=== PATIENT | female | born 2000 | race Caucasian/White ===

== ENCOUNTER 2025-03-17 13:43 | Inpatient (IN) ==
[2025-03-17] MEDS ORDERED: FAMOTIDINE 20 MG TABLET PO PRN (16:15)
[2025-03-17] MEDS ORDERED: SODIUM CHLORIDE FLUSH 0.9% 10 ML SYRINGE IVP PRN (16:16)
[2025-03-17] MEDS ORDERED: LABETALOL 20 MG/4 ML SYRINGE IVP PRN ×3 (16:16)
[2025-03-17] MEDS ORDERED: METOCLOPRAMIDE 10 MG TABLET PO PRN (16:16)
[2025-03-17] MEDS ORDERED: METHYLERGONOVINE 0.2 MG/ML VIAL IM PRN (16:16)
[2025-03-17] MEDS ORDERED: OXYTOCIN 10 UNIT/ML VIAL IM PRN (16:16)
[2025-03-17] MEDS ORDERED: hydrALAZINE INJ 20 MG/ML VIAL IVP PRN (16:16)
[2025-03-17] MEDS ORDERED: CARBOPROST TROMETHAMINE 250 MCG/ML VIAL IM PRN (16:16)
[2025-03-17] MEDS ORDERED: TRANEXAMIC ACID IN NACL 1,000 MG/100 ML BAG IV PRN (16:16)
[2025-03-17] MEDS ORDERED: CALCIUM CARBONATE CHEW 500 MG TABLET PO PRN (16:16)
[2025-03-17] MEDS ORDERED: TERBUTALINE 1 MG/ML VIAL SUBQ PRN (16:16)
--- NOTE | 2025-03-17 16:20 | HISTORY & PHYSICAL EXAMINATION ---
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 Started age 9. Usually manages Tylenol ibuprofen -Metoclopramide sent. -Referral to neurology sent, pending insurance hiccup with . Still working this out. Obestiy -EFW ordered for 32 weeks. Moni works at a [employer] with very supportive bosses. Pre- Weight: 195 lb BMI: 32.4 Blood type: A+ Antibody: Neg CBC: PLT HCT 37.2 HGB 12.4 RUB: immune VZV: Immune HBsAg: Negative HepC: NR RPR/AB-EIA: NR HIV: NR PAP: 09/12/2024 WNL GC/CT: 09/12/2024 Negative HSV: denies Genetic testing: MaterniT negative AFP- Negative Covid: declined Flu: declined FAS: Placenta:anterior w/o previa Cord: 3VC HATTIE: wnl EFW: 457.7g, 24.3% 50gm OGCT:130 TDAP:7/10 Breast Pump:gave info 3rd trimester CBC:10.9/334/213 RPR: NR GBS: neg Delivery plan: Contraception: OCPS Last US: FINDINGS: General: A single living intrauterine gestation is present. Presentation: Vertex Placenta: Placental position is anterior, without previa. Amniotic fluid index: 15.2 cm, within normal limits for gestational age. Largest pocket 6 cm. heart rate: 140 beats per minute. Maternal cervical canal: Not imaged biometrics: Biparietal diameter: 8.0 cm, 32 weeks 2 days. 25th percentile. Head circumference: 31.4 cm, 35 weeks 1 day. 74th percentile. Abdominal circumference: 28.6 cm, 32 weeks 4 days. 43rd percentile. Femur length: 6.1 cm, 31 weeks 5 days. 13th percentile. Estimated gestational age from initial scan: 32 weeks 6 days Composite gestational age from present scan: 33 weeks 0 days Estimated weight and percentile: 2,004 grams. 32nd percentile. Measurement variability in biometric dating: +/- 10 days from 12-20 weeks gestation, +/- 2 weeks from 20-30 weeks gestation, +/- 3 weeks at 30 weeks gestation or more. IMPRESSION: 1. [place] living intrauterine at 33 weeks 0 days based on today's ultrasound. This is concordant with prior dating. Fetus is in the 32nd percentile for weight. 2. Normal placenta and amniotic fluid. Reviewed by: Mario Francois MD on 01/23/2025 HPI Current : Vital Signs Temperature 36.7 C 03/17/25 14:03 Pulse Rate 82 03/17/25 14:03 Respiratory Rate 16 03/17/25 14:03 Blood Pressure 129/80 03/17/25 14:03 Meds/Allgy Home Medications Ambulatory Orders Medication Instructions Recorded Confirmed acetaminophen 325 mg tablet 650 mg PO Q6H PRN 08/30/24 03/14/25 (Tylenol) vits no.126-ferrous fum tab PO QDAY 08/30/24 03/14/25 28 mg iron-folic acid 800 mcg tablet (Classic ) metoclopramide HCl 5 mg tablet 5 mg PO .q6hour Migrain es #30 tabs 09/12/24 03/14/25 famotidine 20 mg tablet 20 mg PO BID PRN heartburn # 60 tabs 11/20/24 03/14/25 ferrous sulfate 325 mg (65 mg 325 mg PO Q OTHER DAY #9 0 tabs 12/06/24 03/14/25 iron) tablet (FeroSul) Allergies Allergies Allergy/AdvReac Type Severity Reaction Status Date / Time adalimumab (From Humira) Allergy Nausea Verified 03/14/25 09:01 etanercept (From Enbrel) Allergy Nausea Verified 03/14/25 09:01 PFS Active Problems All Active Problems (Updated 03/17/25 @ 16:16 by Margarita Jaffe MD) Normal labor (Acute) Uterine size date discrepancy (Acute) Heartburn during (Acute) Ocular migraine (Acute) Supervision of normal (Acute) Anxiety and depression (Acute) Migraines (Acute) Arthritis (Acute) Seasonal allergies (Acute) Medical History Medical History Binge eating disorder Surgical History Surgical History H/O oral surgery [place] teeth extracted Family History Family History Sister Asthma Mother Seasonal allergies Paternal grandfather Diabetes Brother Alcoholism Other Skin cancer Social History Social History (Updated 02/14/25 @ 13:52 by Deneen Herrera MA) Smoking Status: Former smoker If you are a former smoker, when did you quit? 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 Review of Systems Constitutional Denies: Fever Cardiovascular Denies: chest pain or shortness of breath with exertion Respiratory Denies: Shortness of breath Gastrointestinal Reports: Nausea Neurological Reports: Dizziness (after contractions today); Denies: Headache Physical Abdominal Exam Vital Signs: Temp Pulse Resp BP 36.7 C 82 16 129/80 03/17/25 14:03 03/17/25 14:03 03/17/25 14:03 03/17/25 14:03 Contraction Frequency (min/apart): q3-4 Contraction Intensity: positive Moderate Uterine Resting Tone: positive Soft Monitoring Heart Rate Baseline: 150 Strip Review: positive Category I Presentation Presentation: positive Vertex Vaginal Exam Membranes: positive Membranes intact Dilation (in cm): 4 per RN Station: positive -2 Speculum Exam Speculum Exam Performed: positive No Plan for Labor Plan For Labor I expect patient to be DC'd or transferred within 96 hours.: Yes Plan for Labor: Admit for labor. Epidural she thinks. Anticipate . Conclusion/Plan Problem List (1) Normal labor: Lab Results Lab results reviewed: No Other Lab Results: labs pending.
[2025-03-17] MEDS: ONDANSETRON ODT 4 MG TABLET PO PRN (16:35)
[2025-03-17] MEDS: LACTATED RINGERS 1,000 ML IV PRN (16:36)
[2025-03-17 16:49] LABS: HCT - HEMATOCRIT 36.4 % (37.0-47.0); HGB - HEMOGLOBIN 12.1 g/dL (12.0-16.0); MEAN PLATELET VOLUME 11.9 fL (7.9-10.8); NRBC ABSOLUTE COUNT (AUTO) 0.00 x10^3/uL; NUCLEATED RED BLOOD CELLS AUTO 0.0 /100WBC; PLT - PLATELET COUNT 243 10^3/uL (130-450); RED CELL DISTRIBUTION WIDTH 14.7 % (12.0-15.0)
[2025-03-17] MEDS: fentaNYL 100 MCG/2 ML VIAL IVP PRN (17:11)
[2025-03-17] MEDS: LACTATED RINGERS 1,000 ML IV SCH (17:15)
[2025-03-17] MEDS ORDERED: ROPIVACAINE 0.2% 200 MG/100 ML BAG EP ONE (18:13)
[2025-03-17] MEDS ORDERED: ROPIVACAINE 0.2% 200 MG/100 ML BAG EP PRN (19:05)
[2025-03-17] MEDS ORDERED: ONDANSETRON 4 MG/2 ML VIAL IVP PRN ×2 (19:05→22:56)
[2025-03-17] MEDS ORDERED: NALOXONE 0.4 MG/ML VIAL IVP PRN ×2 (19:05→22:56)
[2025-03-17] MEDS ORDERED: NALBUPHINE 10 MG/ML AMP IVP PRN (19:05)
[2025-03-17] MEDS ORDERED: ePHEDrine 50 MG/ML VIAL IVP PRN (19:05)
[2025-03-17] MEDS ORDERED: METOCLOPRAMIDE 10 MG/2 ML VIAL IVP PRN (19:05)
--- NOTE | 2025-03-17 19:09 | ANESTHESIA PROCEDURE NOTE ---
Pre-Anesthesia VS, & Labs Diagnosis Surgical Diagnosis:: active labor Procedure Procedure: spontaneous labor Vitals Vital Signs: Temp Pulse Resp BP 36.5 C 82 16 129/80 03/17/25 17:23 03/17/25 17:23 03/17/25 17:23 03/17/25 17:23 NPO NPO: Other (clears from now on) Is Patient ?: Yes Lab Results Current Lab Results: Laboratory Tests 03/17/25 16:23: WBC 13.3 H, RBC 4.20, Hgb 12.1, Hct 36.4 L, MCV 86.7, MCH 28.8, MCHC 33.2, RDW 14.7, Plt Count 243, MPV 11.9 H, Neut # (Auto) 11.0 H, Lymph # (Auto) 1.3 L, Arthur # (Auto) 0.9, Eos # (Auto) 0.0, Baso # (Auto) 0.0, Absolute Nucleated RBC 0.00, Nucleated RBC % 0.0, Blood Type A POSITIVE, Antibody Screen NEGATIVE 03/17/25 16:23 Meds/Allgy Home Medications Ambulatory Orders Medication Instructions Recorded Confirmed acetaminophen 325 mg tablet 650 mg PO Q6H PRN 08/30/24 03/14/25 (Tylenol) vits no.126-ferrous fum tab PO QDAY 08/30/24 03/14/25 28 mg iron-folic acid 800 mcg tablet (Classic ) metoclopramide HCl 5 mg tablet 5 mg PO .q6hour Migrain es #30 tabs 09/12/24 03/14/25 famotidine 20 mg tablet 20 mg PO BID PRN heartburn # 60 tabs 11/20/24 03/14/25 ferrous sulfate 325 mg (65 mg 325 mg PO Q OTHER DAY #9 0 tabs 12/06/24 03/14/25 iron) tablet (FeroSul) Allergies Allergies Allergy/AdvReac Type Severity Reaction Status Date / Time adalimumab (From Humira) Allergy Nausea Verified 03/14/25 09:01 etanercept (From Enbrel) Allergy Nausea Verified 03/14/25 09:01 PFSH Active Problems All Active Problems (Updated 03/17/25 @ 16:16 by Margarita Jaffe MD) Normal labor (Acute) Uterine size date discrepancy (Acute) Heartburn during (Acute) Ocular migraine (Acute) Supervision of normal (Acute) Anxiety and depression (Acute) Migraines (Acute) Arthritis (Acute) Seasonal allergies (Acute) Medical History Medical History Binge eating disorder Surgical History Surgical History H/O oral surgery [place] teeth extracted Family History Family History Sister Asthma Mother Seasonal allergies Paternal grandfather Diabetes Brother Alcoholism Other Skin cancer Social History Social History (Updated 02/14/25 @ 13:52 by Deneen Herrera MA) Smoking Status: Former smoker If you are a former smoker, when did you quit? 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 Anesthesia Exam (Expanded) Exam General: Alert, Oriented x3, Cooperative and Moderate distress (during contractions) Dental: WNL Mouth Opening: Greater than 4 Fingerbreadths Neck Mobility: Normal Mallampati classification: II Thyromental Distance: greater than 6 cm Respiratory: Lungs clear Cardiovascular: Regular rate Exam Exam Vital Signs: Vital Signs x48h Temp Pulse Resp BP 03/17/25 17:23 36.5 C 82 16 129/80 03/17/25 14:03 36.7 C 82 16 129/80 Plan Problem List (1) Normal labor: Plan Anesthesia Type: Epidural Consent for Procedure(s) Verified and Reviewed: Yes Code Status: Attempt Resuscitation ASA Classification ASA classification: 2-Mild systemic disease Is this case an emergency?: No
--- NOTE | 2025-03-17 20:53 | PROVIDER PROGRESS NOTE ---
Progress Note Progress Note Progress Note: Patient comfortable now with her epidural. VSS. excited to meet her son. wants to do whatever we can to expidite things. Mom says AROM helped her go faster. cervix 100/-1. AROM with clear fluid. anticipate later this evening.
[2025-03-17] MEDS: OXYTOCIN/SODIUM CHLORIDE 500 ML IV PRN (22:45)
[2025-03-17] MEDS ORDERED: HYDROCORTISONE 1% CREAM 28 GM TUBE TOP PRN (22:56)
[2025-03-17] MEDS ORDERED: WITCH HAZEL/GLYCERIN 1 PAD TOP PRN (22:56)
[2025-03-17] MEDS ORDERED: ACETAMINOPHEN 500 MG TABLET PO PRN (22:56)
[2025-03-17] MEDS ORDERED: SIMETHICONE CHEW 80 MG TABLET PO PRN (22:56)
[2025-03-17] MEDS ORDERED: OXYTOCIN/SODIUM CHLORIDE 500 ML IV PRN (22:56)
--- NOTE | 2025-03-17 23:16 | DELIVERY NOTE ---
Delivery Note Labor Labor: positive Spontaneous Infant Delivery Method Infant Delivery Method: positive Spontaneous vaginal delivery Presentation Presentation: positive Vertex and ZEUS - right occiput anterior Nuchal Cord Nuchal Cord: positive None Amniotic Fluid Description Amniotic Fluid Description: positive Clear and Moderate meconium (with delivery) Episiotomy Type Episiotomy Type: positive None Laceration Laceration: positive 1st degree (repaired with 3-0 Vicryl Rapide with one figure of 8 stitch right at the vaginal opening.) Delivery Outcome Delivery Date: 03/17/25 Delivery Outcome: positive Livebirth [place]: positive Placed in direct skin contact with mother, Stimulated, Warmed and Lajas used [place] sex: positive Male Cord Cord: positive 3 vessels Placenta Placenta: positive Intact (very small) and Spontaneous Estimated Blood Loss Estimated Blood Loss (in cc): 100 Post Delivery Events Post Delivery Events: positive No post delivery events Delivery Comments (Free Text/Narrative) Delivery Comments (Free Text/Narrative): Patient presented in active labor. progressed to 4 cm. received her epidural. 1 hr or so later I checked and she was 7 cm. AROM was done and fluid was clear. 2 hrs later she was complete. We readied her for delivery. She pushed thru about 5 contractions and delivered her baby in OA position. Baby was put on her belly. Cord was relatively short. I clamped the cord after about 2 min and Sebastian cut the cord. Patient's mom and dad are here for support. Baby vigorous from time of . Apgars 9/9. Baby's name is Deacon. Pitocin is infused in the IV. Placenta delivered spontaneously after another 2 min. Small laceration repaired. She was amazing.
[2025-03-18] MEDS: IBUPROFEN 600 MG TABLET PO PRN (02:06)
[2025-03-18] MEDS: ACETAMINOPHEN 500 MG TABLET PO PRN (02:06)
[2025-03-18] MEDS: DOCUSATE SODIUM 100 MG CAPSULE PO PRN (08:22)
--- NOTE | 2025-03-18 15:40 | PROVIDER PROGRESS NOTE ---
Subjective Subjective Subjective: Subjective Patient reports she is doing well. Lochia appropriate. Denies heavy bleeding. Ambulating. Pelvic and abdominal pain well-controlled. Tolerating oral intake. Diet: Regular. Voiding without difficulty. Passing flatus. Denies BM. Patient is bonding with baby in room Breast feeding going well. Denies feeling lightheaded, dizzy or excessively fatigued. Objective General: Alert, oriented, no apparent distress. Cardiovascular: Regular rate. Regular rhythm. Lungs: No increased work of breathing. Abdomen: Uterus firm. Below umbilicus. No guarding or rebound. Extremities: No pain on palpation. No cords palpated. Distal pulses intact. Current Medications Current Medications Current Medications: Current Medications Generic Name Dose Route Start Last Admin Trade Name Freq PRN Reason Stop Dose Admin Acetaminophen 1,000 mg 03/17/25 16:16 03/18/25 11:22 Acetaminophen 500 Mg Tablet PO 1,000 mg Q8HR PRN Administration Mild Pain or Fever>38C(100.4F) Acetaminophen 1,000 mg 03/17/25 22:56 Acetaminophen 500 Mg Tablet PO Q8HR PRN Mild Pain or Fever>38C(100.4F) Calcium Carbonate/Glycine 1,000 mg 03/17/25 16:16 Calcium Carbonate Chew 500 Mg Tablet PO Q6HR PRN Heartburn Diphenhydramine HCl 25 mg 03/17/25 22:56 Diphenhydramine 25 Mg Capsule PO Q6HR PRN Allergy Symptoms Docusate Sodium 200 mg 03/17/25 16:16 03/18/25 08:22 Docusate Sodium 100 Mg Capsule PO 200 mg BID PRN Administration Constipation Famotidine 20 mg 03/17/25 16:15 Famotidine 20 Mg Tablet PO BID PRN Heartburn Hydralazine HCl 5 - 10 mg 03/17/25 16:16 Hydralazine Inj 20 Mg/Ml Vial IVP Q20M PRN SBP> or= 160 OR DBP> or= 110 Protocol Hydrocortisone 1 applic 03/17/25 22:56 Hydrocortisone 1% Cream 28 Gm Tube TOP QID PRN Hemorrhoids Ibuprofen 600 mg 03/17/25 22:56 03/18/25 08:22 Ibuprofen 600 Mg Tablet PO 600 mg Q6HR PRN Administration Moderate Pain (Level 4-6) Labetalol HCl 20 mg 03/17/25 16:16 Labetalol 20 Mg/4 Ml Syringe IVP .ONCE PRN SBP> or= 160 OR DBP> or= 110 Protocol Labetalol HCl 20 - 80 mg 03/17/25 16:16 Labetalol 20 Mg/4 Ml Syringe IVP Q10M PRN SBP> or= 160 OR DBP> or= 110 Protocol Labetalol HCl 20 - 40 mg 03/17/25 16:16 Labetalol 20 Mg/4 Ml Syringe IVP Q10M PRN SBP> or= 160 OR DBP> or= 110 Protocol Metoclopramide HCl 5 mg 03/17/25 16:16 Metoclopramide 10 Mg Tablet PO Q6HR PRN Nausea / Vomiting Nifedipine 10 - 20 mg 03/17/25 16:16 Nifedipine 10 Mg Capsule PO Q20M PRN SBP> or= 160 OR DBP> or= 110 Protocol Ondansetron HCl 4 mg 03/17/25 16:16 03/17/25 16:35 Ondansetron Odt 4 Mg Tablet PO 4 mg Q4HR PRN Administration Nausea / Vomiting Simethicone 80 mg 03/17/25 22:56 Simethicone Chew 80 Mg Tablet PO TID PRN Gas Sodium Chloride 10 ml 03/17/25 16:16 Sodium Chloride Flush 0.9% 10 Ml Syringe IVP PRN PRN NEEDED PER PROVIDER ORDERS Witch Yumiko/Glycerin 1 pad 03/17/25 22:56 Witch Yumiko/Glycerin 1 Pad TOP PRN PRN ITCHING Objective Vital Signs/Intake & Output Vital Signs: Vital Signs x48h Temp Pulse Resp BP Pulse Ox 03/18/25 13:24 36.8 C 83 17 139/86 H 98 03/18/25 09:24 98.2 C H 87 18 132/85 H 99 Intake & Output: Intake & Output 03/15/25 03/16/25 03/17/25 03/18/25 23:59 23:59 23:59 23:59 Intake Total 800 / 800 Output Total 500 / 500 600 / 600 Balance -500 / -500 200 / 200 Weight (kg) 214 lb 15.211 oz Lab Results 03/17/25 16:23 Other Labs: Lab Results x24hrs 03/17/25 Range/Units 16:23 WBC 13.3 H (4.8-10.8) x10^3/uL RBC 4.20 (4.20-5.40) 10^6/uL Hgb 12.1 (12.0-16.0) g/dL Hct 36.4 L (37.0-47.0) % MCV 86.7 (81.0-99.0) fL MCH 28.8 (27.0-31.0) pg MCHC 33.2 (32.0-36.0) g/dL RDW 14.7 (12.0-15.0) % Plt Count 243 (130-450) 10^3/uL MPV 11.9 H (7.9-10.8) fL Neut # (Auto) 11.0 H (1.5-6.6) 10^3/uL Lymph # (Auto) 1.3 L (1.5-3.5) 10^3/uL [place] # (Auto) 0.9 (0.0-1.0) 10^3/uL Eos # (Auto) 0.0 (0.0-0.7) 10^3/uL Baso # (Auto) 0.0 (0.0-0.1) 10^3/uL Absolute Nucleated RBC 0.00 x10^3/uL Nucleated RBC % 0.0 /100WBC Blood Type A POSITIVE Antibody Screen NEGATIVE Assessment/Plan Problem List (1) care and examination of lactating mother: Impression: Routine care. Anticipate discharge tomorrow. (2) Delivery outcome of liveborn : Impression: As above Qualifiers: Number of infants delivered: single infant Qualified Code(s): Z37.0 - Single live (3) Spontaneous vaginal delivery: Impression: as above
[2025-03-18] MEDS: LACTATED RINGERS 500 ML IV ONE (18:02)
[2025-03-18 21:38] VITALS: O2SAT 97
--- NOTE | 2025-03-19 08:14 | Discharge Summary ---
Discharge Summary Admit Date: 03/17/25 Discharge Date: 03/19/25 Discharging Provider: Dima Art MD Code Status: Attempt Resuscitation DIAGNOSES Admission Diagnoses: 40 weeks gestation Term labor Discharge Diagnoses with Status of Each Condition: Same Delivery of live [place] Status post spontaneous vaginal delivery HPI History of Present Illness: Subjective Patient reports she is doing well. Lochia appropriate. Denies heavy bleeding. Ambulating. Pelvic and abdominal pain well-controlled. Tolerating oral intake. Diet: Regular. Voiding without difficulty. Passing flatus. Denies BM. Patient is bonding with baby in room Breast feeding going well. Supplementing with formula Denies feeling lightheaded, dizzy or excessively fatigued. Objective General: Alert, oriented, no apparent distress. Cardiovascular: Regular rate. Regular rhythm. Lungs: No increased work of breathing. Abdomen: Uterus firm. Below umbilicus. No guarding or rebound. Extremities: No pain on palpation. No cords palpated. Distal pulses intact. HOSPITAL COURSE Hospital Course: Patient was admitted at 40 weeks gestation in active labor. She received an epidural for pain control. She had amniotomy performed with clear fluid at 7 cm and progressed quickly until complete. Had a very quick second stage and no complications. She stayed in the hospital third unit for 2 days, but was discharged in good condition on day 2. ALLERGIES Allergies Allergy/AdvReac Type Severity Reaction Status Date / Time adalimumab (From Humira) Allergy Nausea Verified 03/14/25 09:01 etanercept (From Enbrel) Allergy Nausea Verified 03/14/25 09:01 MEDICATIONS Ambulatory Orders Medication Instructions Recorded Confirmed acetaminophen 325 mg tablet 650 mg PO Q6H PRN pain 12/1903/18/25 (Tylenol) vits no.126-ferrous fum 1 tab PO DAILY 03/18/25 28 mg iron-folic acid 800 mcg tablet (Classic ) famotidine 20 mg tablet 20 mg PO BID PRN heartburn # 60 tabs 11/20/24 03/18/25 ferrous sulfate 325 mg (65 mg 325 mg PO .QOD 03/18/25 03/18/25 iron) tablet (FeroSul) metoclopramide HCl 5 mg tablet 5 mg PO .q6hour PRN Paul juan 03/18/25 03/18/25 PHYSICAL EXAM AT DISCHARGE Vital Signs: Vital Signs x48h Temp Pulse Resp BP BP Pulse Ox 03/19/25 06:35 36.6 C 72 14 115/66 97 03/19/25 02:00 36.5 C 72 16 117/67 97 LABS 03/17/25 16:23 FOLLOW UP Follow Up: With [facility] in 1 week TIME SPENT Time Spent in Discharge (Minutes): 20 Discharge Plan Discharge Patient Disposition: Home, Self Care Prescriptions: Continued famotidine 20 mg tablet 20 mg PO BID PRN (Reason: heartburn) Qty: 60 4RF metoclopramide HCl 5 mg tablet 5 mg PO .q6hour PRN (Reason: Migraines) ferrous sulfate [FeroSul] 325 mg (65 mg iron) tablet 325 mg PO .QOD Rx Instructions: best if taken in the morning. Classic 28 mg iron- 800 mcg tablet 1 tab PO DAILY acetaminophen [Tylenol] 325 mg tablet 650 mg PO Q6H PRN (Reason: pain) Activity Restrictions: Additional Comments Diet: Regular Print Language: Telugu Patient Instructions: After a Vaginal , Depression Follow-up Care: NIK PABLO NP [Primary Care Provider, Nurse Practitioner]
[2025-03-19 13:07] VITALS: BP 128/80; TEMP 100.2
--- NOTE | 2025-03-19 13:12 | Labor Flowsheet ---
Labor Flowsheet Datetime Report Generated by CPN: 03/19/2025 13:11 Datetime: 03/19/2025 12:40 VITAL SIGNS NBP Sys/Spring/Mean (mmHg): 128 : 80 : 91 Pulse: 90 Datetime: 03/19/2025 01:53 SpO2 (%): 97 Datetime: 03/17/2025 23:06 Membranes Ruptured Date/Time: 03/17/2025 20:30 Datetime: 03/17/2025 22:59 Respirations: 18 Datetime: 03/17/2025 22:41 Stage of : Recovery Datetime: 03/17/2025 22:38 LaborFlag: Labor Datetime: 03/17/2025 22:29 Contraction Comments: pushinh FHR Baseline Rate : 140 Variability: Moderate 6-25 bpm Accelerations: 15X15 Datetime: 03/17/2025 22:19 Strip Reviewed by: mKnudsen COMMUNICATION Communication: RN at Bedside; RN Reviewed Strip; Provider at Bedside Notification Reason: Labor Status Communication Comments: pushing Datetime: 03/17/2025 22:05 Frequency (min): 2-3 Duration (sec): 45-60+ FHR Baseline Changes: No Baseline Change Decelerations: None Category: Category I Exam by: mk Datetime: 03/17/2025 22:00 PATIENT CARE Patient Position/Activity: Left Lateral Datetime: 03/17/2025 21:35 Anesthesia Level Check: T10- Umbilicus Datetime: 03/17/2025 20:59 PAIN Pain Scale: 4 Pain Coping: Talking Through Contractions Datetime: 03/17/2025 20:53 Monitor Interventions for UA: [place] Adjusted Datetime: 03/17/2025 20:29 Membrane Status: Ruptured Membranes Rupture Method: Artificial Amniotic Fluid Color: Clear Amniotic Fluid Amount: Small Amniotic Fluid Odor: Normal Vaginal Bleeding: None Cervix, Consistency: Soft Cervix, Position: Anterior Datetime: 03/17/2025 20:22 I/O Interventions: Orozco Cath Inserted Datetime: 03/17/2025 20:04 UTERINE ACTIVITY Monitor Mode: External Quality: Strong Pattern: Normal: <= 5 Contractions in 10 Minutes Resting Tone (Palpate): Relaxed Datetime: 03/17/2025 19:57 VAGINAL EXAM Dilatation (cm): 4.0 Effacement (%): 100 Station: -1 Anesthesia Comments: both sides numb now Datetime: 03/17/2025 19:37 Provider Notified (Name): M Aube Datetime: 03/17/2025 19:00 ASSESSMENT A Monitor Mode: Telemetry Datetime: 03/17/2025 18:31 ANESTHESIA Epidural Procedure: Test Dose Datetime: 03/17/2025 18:19 PROCEDURE TIME OUT Procedure Verify: Correct Patient Identity; Accurate Procedure Consent Form; Correct Patient Position Datetime: 03/17/2025 17:47 Patient Care Comments: Pt. getting out of jacuzzi Datetime: 03/17/2025 17:22 MEDICATIONS Analgesics/Sedatives: Fentanyl (mcg) @ 50 Datetime: 03/17/2025 16:00 Comments: heart tones in the 120's prior to mom entering jacuzzi
== END 2025-03-19 13:00 | disposition home or self-care (01) | DRG 806 ==
LOC: WFO 13:43 → FBP 13:48
PROVIDERS: ADMIT Obstetrics & Gynecology; ATTEND Obstetrics & Gynecology
DX: O99.354 Diseases of the nervous system complicating childbirth; Z37.0 Single live birth; Z87.891 Personal history of nicotine dependence; O70.0 First degree perineal laceration during delivery; Z3A.40 40 weeks gestation of pregnancy; G43.909 Migraine, unspecified, not intractable, without status migrainosus; O99.214 Obesity complicating childbirth